=== PATIENT | female | born 1955 | race African-American/Black ===

== ENCOUNTER 2020-08-22 09:09 | Outpatient (CLI) | payer MEDICARE, SELFPAY ==
--- NOTE | ~2020-08-22 | MM_ITS ---
EXAMINATION: MM screening [facility] BI w nohemi HISTORY: Screening mammogram TECHNIQUE: Craniocaudal and mediolateral oblique 3-D tomosynthesis images were obtained and synthetic 2-D images were generated. CAD analysis was submitted and interpreted. COMPARISON: 02/22/2019, 09/23/2017, 11/28/2015 BREAST PARENCHYMAL COMPOSITION: There are scattered areas of fibroglandular density. FINDINGS: There is no evidence of suspicious mass, calcification, or architectural distortion to sugg est malignancy in either breast. There has been no suspicious interval change. IMPRESSION: 1. No mammographic evidence of malignancy. 2. Recommend routine screening mammography in one year. BI-RADS Category 1: Negative Reviewed, dictated and finalized at location A.
--- NOTE | ~2020-08-22 | DEXA_ITS ---
Bone Density Report Name: Janie Voss Age: 65 Sex: Female Ethnicity: White Date of : 1955 Indication: postmenopausal; hysterectomy; Referring Provider: Vikas Aguilar Study: Bone densitometry was performed. Exam Date: August 22, 2020 Accession number: [id number] Bone Density: Region BMD T-score Z-score Classification AP Spine (L1-L4) 1.075 0.3 2.2 Normal Femoral Neck (Left) 0.804 -0.4 1.2 Normal Total Hip (Left) 0.979 0.3 1.7 Normal Total Hip Bilateral Avg 0.956 0.1 1.5 Normal Femoral Neck (Right) 0.749 -0.9 0.7 Normal Total Hip (Right) 0.932 -0.1 1.3 Normal World Health Organization criteria for BMD impression classify patients as: Normal (T-score at or above -1.0), Osteopenia (T-score between -1.0 and -2.5), or Osteoporosis (T-score at or below -2.5). 10-year Fracture Risk: FRAX not reported because: All T-scores for Spine Total, Hip Total, Femoral Neck at or above -1.0 Previous Exams: Region Exam Age BMD T-score BMD Change BMD Change Date g/cm2 vs Baseline vs Previous AP Spine(L1-L4) 08/22/2020 65 1.075 0.3 -0.013(-1.2%)# -0.013(-1.2%)# 10/26/2013 58 1.089 0.4 Total Hip(Left) 08/22/2020 65 0.979 0.3 -0.039(-3.8%)# -0.039(-3.8%)# 10/26/2013 58 1.017 0.6 Total Hip(Right) 08/22/2020 65 0.932 -0.1 -0.085(-8.3%)# -0.085(-8.3%)# 10/26/2013 58 1.017 0.6 *Denotes significance at 95% confidence level, LSC for AP Spine = 0.022 g/cm2, LSC for Total Hip = 0.027 g/cm2 Clinical Information Provided by Patient: Has used the following medications: HRT (i.e. estrogen/hormone therapy), Vitamin D, Calcium Has the following medical conditions: Hysterectomy Patient maximum height was 69 Menopause Age: 42 Drinks caffeinated beverages Onset of menses at age 10 Number of children 2 Impression: The patient has normal bone mass. No significant bone loss was observed. Discussion: BONE DENSITY IS ABOVE THE MINIMUM DESIRABLE LEVEL AT ALL SKELETAL SITES TESTED. This patient?s bone mineral density is above the minimum desirable level (T-score -1.0 or better) at all sites measured. The patient should follow a healthful lifestyle (good nutrition with adequate calcium and vitamin D, and appropriate weight-bearing exercise). Follow-Up: Consider repeating this study in 5 years or sooner if there is some new clinical indication. Reported by: EMY on 08/22/2020 9:34:00 AM. Revie
== END 2020-08-22 09:10 | disposition home or self-care (01) ==
PROVIDERS: PCP Family Medicine Adolescent Medicine; Visit Provider Family Medicine Adolescent Medicine
DX: Z12.31 Encounter for screening mammogram for malignant neoplasm of breast (principal); Z78.0 Asymptomatic menopausal state
CPT/HCPCS: 77063; 77067; 77080

== ENCOUNTER 2021-10-29 16:58 | Outpatient (CLI) | payer MEDICARE, SELFPAY ==
--- NOTE | ~2021-10-29 | MM_ITS ---
EXAMINATION: MM screening [facility] BI w nohemi HISTORY: Screening TECHNIQUE: Craniocaudal and mediolateral oblique 3-D tomosynthesis images were obtained and synthetic 2-D images were generated. CAD analysis was submitted and interpreted. COMPARISON: Comparison to multiple prior studies sequentially, with oldest reviewed study dated 11/21. BREAST PARENCHYMAL COMPOSITION: There are scattered areas of fibroglandular density. FINDINGS: There is no evidence of suspicious mass, calcification, or architectural distortion to sugg est malignancy in either breast. There has been no suspicious interval change. IMPRESSION: 1. No mammographic evidence of malignancy. 2. Recommend routine screening mammography in one year. BI-RADS Category 1: Negative Reviewed, dictated and finalized at location A.
== END 2021-10-29 16:59 | disposition home or self-care (01) ==
PROVIDERS: PCP Family Medicine Adolescent Medicine; Visit Provider Obstetrics & Gynecology
DX: Z12.31 Encounter for screening mammogram for malignant neoplasm of breast (principal)
CPT/HCPCS: 77063; 77067

== ENCOUNTER 2023-02-04 08:31 | Outpatient (CLI) | payer MEDICARE, SELFPAY ==
--- NOTE | ~2023-02-04 | MM_ITS ---
EXAMINATION: MM screening [facility] BI w nohemi HISTORY: Screening mammogram TECHNIQUE: Craniocaudal and mediolateral oblique 3-D tomosynthesis images were obtained and synthetic 2-D images were generated. CAD analysis was submitted and interpreted. COMPARISON: 10/29/2021, 08/22/2020, 02/22/2019 bilateral screening mammogram examinations BREAST PARENCHYMAL COMPOSITION: There are scattered areas of fibroglandular density. FINDINGS: There is no evidence of suspicious mass, calcification, or architectural distortion to sugg est malignancy in either breast. There has been no suspicious interval change. IMPRESSION: 1. No mammographic evidence of malignancy. 2. Recommend routine screening mammography in one year. BI-RADS Category 1: Negative Reviewed, dictated and finalized at location A.
== END 2023-02-04 08:32 | disposition home or self-care (01) ==
LOC: ANHIMG 08:36
PROVIDERS: PCP Family Medicine Adolescent Medicine; Visit Provider Obstetrics & Gynecology
DX: Z12.31 Encounter for screening mammogram for malignant neoplasm of breast (principal)
CPT/HCPCS: 77063; 77067

== ENCOUNTER 2023-07-22 10:53 | Outpatient (CLI) | payer MEDICARE, SELFPAY ==
--- NOTE | ~2023-07-22 | XR_ITS ---
EXAM: XR knee LT 3V DATE: 07/22/2023 11:05 HISTORY: M25.562 - Pain in left knee . COMPARISON: None available. FINDINGS: Normal mineralization. No fracture or dislocation. No lytic or blastic lesion. Mild medial and lateral joint space narrowing. Mild tricompartmental osteophytosis. Moderate volume joint fluid. No erosion or periosteal change. Soft tissues within normal limits. IMPRESSION: Mild tricompartmental osteoarthritis. Moderate joint effusion. Reviewed, dictated and finalized at location K.
== END 2023-07-22 10:54 ==
LOC: MICIMG 10:54
PROVIDERS: PCP Family Medicine Adolescent Medicine; Visit Provider Family Medicine Adolescent Medicine
DX: M17.12 Unilateral primary osteoarthritis, left knee (principal)
CPT/HCPCS: 73562

== ENCOUNTER 2023-10-24 11:15 | Outpatient (CLI) | payer MEDICARE, SELFPAY ==
--- NOTE | ~2023-10-24 | MR_ITS ---
MRI of the left knee Clinical history: Pain, effusion Technique: Coronal proton density and proton density-weighted images, sagittal proton-density and T2 fat-sat images, and axial proton-density fat-saturated images were acquired. Findings: Anterior and posterior cruciate ligaments are intact. Medial collateral ligament and the la teral collateral ligament conflux are intact. Popliteus tendon is intact. There is complex tearing of the anterior horn of the lateral meniscus, which is ill-defined and hyper intense. Questionable horizontal cleavage tear of the posterior horn of the lateral meniscus. No medi al meniscal tear evident. There is mild chondromalacia at the medial patellar facet. Femoral trochlear cartilage is well preser isis. There is mild chondromalacia of the lateral compartment. Medial compartment cartilage is well pr eserved. There is small enchondroma of the distal femur. Extensor mechanism is intact. There is moderate joint effusion and small Samayoa's cyst. Impression: Complex tearing of the anterior horn lateral meniscus. Questionable horizontal cleavage tear of the p osterior horn of the lateral meniscus. Mild chondromalacia of the patella and lateral compartment. Moderate joint effusion with small Samayoa's cyst. Reviewed, dictated and finalized at location . Impression: Complex tearing of the anterior horn lateral meniscus. Questionable horizontal cleavage tear of the posterior horn of the lateral meniscus. Mild chondromalacia of the patella and lateral compartment. Moderate joint effusion with small Samayoa's cyst.
== END 2023-10-24 11:16 ==
LOC: MICIMG 11:16
PROVIDERS: PCP Family Medicine Adolescent Medicine; Visit Provider Family Medicine Adolescent Medicine
DX: S83.272A Complex tear of lateral meniscus, current injury, left knee, initial encounter (principal); M25.462 Effusion, left knee; M22.42 Chondromalacia patellae, left knee; M71.22 Synovial cyst of popliteal space [Baker], left knee
CPT/HCPCS: 73721

== ENCOUNTER 2024-05-25 15:08 | Outpatient (CLI) | payer MEDICARE, SELFPAY ==
--- NOTE | ~2024-05-25 | MM_ITS ---
EXAMINATION: MM screening [facility] BI w nohemi HISTORY: Screening TECHNIQUE: Craniocaudal and mediolateral oblique 3-D tomosynthesis images were obtained and synthetic 2-D images were generated. CAD analysis was submitted and interpreted. COMPARISON: Comparison to multiple prior studies sequentially, with oldest reviewed study dated 11/27. BREAST PARENCHYMAL COMPOSITION: Not dense: There are scattered areas of fibroglandular density. FINDINGS: There is no evidence of suspicious mass, calcification, or architectural distortion to sugg est malignancy in either breast. There has been no suspicious interval change. IMPRESSION: 1. No mammographic evidence of malignancy. 2. Recommend routine screening mammography in one year. BI-RADS Category 1: Negative Reviewed, dictated and finalized at location B. RNAL FETAL PHYSICIAN
--- OUTSIDE RECORDS SUMMARY | 2024-05-25 15:13 | XMS_ITS | Clinical Summary ---
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 Gender Identity Not on file Sexual Orientation Not on file Plan of Treatment Health Maintenance Due Date Last Done Comments Colorectal Cancer Screening Colonoscopy (10 Years) 1955 Hepatitis C 1971 DTaP, Tdap and Td Vaccines ( 1 - Tdap) 1972 Mammogram Screening 1993 Zoster Vaccines (1 of 2) 2003 Dexa Scan (General) 2018 Pneumococcal Vaccine: 65+ Ye ars (1 of 1 - PCV) 2018 COVID-19 Vaccine ( - 2023-2 5 season) 2023 Influenza Adult (#1) 2024 RSV Immunization or 60+ Years (1 - 1-dose 75+ series) 2028 Meningococcal B Vaccine Aged Out No l onger eligible based on patient's age to complete this topic Meningococcal Vaccine Aged Out No minal eliu eligible based on patient's age to complete this topic RSV Immunizations Under 20 Months Aged Out No longer eligible based on patient's age to complete this topic
--- OUTSIDE RECORDS SUMMARY | 2024-05-25 15:13 | XMS_ITS | Clinical Summary ---
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 Gender Identity Not on file Sexual Orientation Not on file Plan of Treatment Health Maintenance Due Date Last Done Comments DEXA Bone Density 1955 Hepatitis C Virus (HCV) Screening 1955 TdaP Immunization 1955 Colonoscopy 1998 Colorectal Cancer Screening 1998 Cologuard 2003 Immunochemical Fecal Occult Blood 2003 Mammogram 2003 Pneumococcal Immunization (5 0+ years) (1 of 1 - PCV) 2003 Zoster Immunization (1 of 2) 2003 Influenza Immunization (#1) 2023 11/0 05/2020, 02/08/2020 SARS-COV-2 Immunization ( season) 2023 02/26/2021, 06/26/2020, 05/29/2020 Respiratory Syncytial Virus (RSV) Immunization (Adult) (1 - 1-dose 75+ series) 2028 Hepatitis B Immunization Aged Out No longer eligible based on patient's age to complete this topic Meningococcal Immunization (ACWY) Aged Out No longer eligible b ased on patient's age to complete this topic Rotavirus Immunization Aged Out No lo nger eligible based on patient's age to complete this topic
== END 2024-05-25 15:09 | disposition home or self-care (01) ==
LOC: ANHIMG 15:10
PROVIDERS: PCP Family Medicine Adolescent Medicine; Visit Provider Obstetrics & Gynecology
DX: Z12.31 Encounter for screening mammogram for malignant neoplasm of breast (principal)
CPT/HCPCS: 77063; 77067